=== PATIENT | female | born 1950 | race Asian ===

== ENCOUNTER 2019-02-21 16:38 | Emergency (ER) | payer OTHER ==
[~2019-02-21] VITALS: Ht 157.5 cm; Wt 55.8 kg
[2019-02-21] MEDS ORDERED: CEPH500 PO (19:13)
== END 2019-02-21 19:23 | disposition home or self-care (01) ==
LOC: ER 16:38
DX: S62.631B Displaced fracture of distal phalanx of left index finger, initial encounter for open fracture (principal); S61.211A Laceration without foreign body of left index finger without damage to nail, initial encounter; Z23 Encounter for immunization; W29.8XXA Contact with other powered hand tools and household machinery, initial encounter
CPT/HCPCS: 12002; 73140; 90471; 90714; 99283-25